=== PATIENT | male | born 1965 | race Caucasian/White ===

== ENCOUNTER 2017-03-30 09:15 | Inpatient (IN) | payer OTHER ==
[~2017-03-30] VITALS: Ht 188 cm; Wt 120.1 kg
[2017-03-30] MEDS ORDERED: DILTIAZEM 5 MG/ML, 5ML ONE (09:52)
[2017-03-30] MEDS ORDERED: SODIUM CHLORIDE FLUSH 10ML SYR IVF ONE (10:00)
[2017-03-30] MEDS ORDERED: DILTIAZEM 5 MG/ML, 5ML IV ONE (10:00)
[2017-03-30] MEDS ORDERED: SODIUM CHLORIDE 0.9% 1,000ML IVBOLUS ONE (10:00)
[2017-03-30 10:13] LABS: HEMATOCRIT 47.2 % (39.2-51.8); HEMOGLOBIN 16.3 g/dL (13.7-18.0); WHITE BLOOD COUNT 10.6 x10^3/uL (3.4-10)
[2017-03-30 10:24] LABS: ASPARTATE AMINO TRANSFERASE 39 U/L (15-37); BLOOD UREA NITROGEN 13 mg/dL (7-18)
[2017-03-30] MEDS ORDERED: PROPOFOL 10 MG/ML, 20ML ONE (10:48)
[2017-03-30] MEDS ORDERED: PROPOFOL 10 MG/ML, 20ML IVPush ONE (11:00)
[2017-03-30] MEDS ORDERED: DILTIAZEM 125 MG in SODIUM CHLORIDE 0.9% 100 ML IV PRN (11:30)
[2017-03-30] MEDS ORDERED: DILTIAZEM 125 MG in SODIUM CHLORIDE 0.9% 100 ML IV SCH (13:00)
[2017-03-30 13:26] LABS: IS PT STATUS REG ER OR PRE ER? YES
[2017-03-30] MEDS ORDERED: LORazepam 1MG TABLET PO PRN (13:30)
[2017-03-30] MEDS ORDERED: ONDANSETRON ODT 4 MG PO PRN (16:30)
[2017-03-30] MEDS ORDERED: ONDANSETRON 2MG/ML, 2ML IVPush PRN (16:30)
[2017-03-30] MEDS ORDERED: ENOXAPARIN 40 MG/0.4 ML SQ SCH (17:00)
[2017-03-30] MEDS ORDERED: MAGNESIUM SULFATE PMX 2GM/50ML 50 ML IV ONE (17:00)
[2017-03-30 17:30] VITALS: BP 132/96
[2017-03-30] MEDS ORDERED: ENAL10TA PO (17:44)
[2017-03-30] MEDS ORDERED: PRAV10TA2 PO (17:45)
[2017-03-30 18:54] VITALS: BP 127/91
[2017-03-30 19:10] LABS: IS PT STATUS REG ER OR PRE ER? NO
[2017-03-30] MEDS: SODIUM CHLORIDE 0.9% 1,000 ML IV SCH ×2 (19:43→19:44)
[2017-03-30] MEDS ORDERED: PRAVASTATIN 20 MG TABLET PO SCH (21:00)
[2017-03-31 00:51] VITALS: BP 117/78
[2017-03-31 05:25] LABS: HEMATOCRIT 43.8 % (39.2-51.8); HEMOGLOBIN 14.8 g/dL (13.7-18.0); WHITE BLOOD COUNT 8.4 x10^3/uL (3.4-10)
[2017-03-31 05:30] LABS: ASPARTATE AMINO TRANSFERASE 23 U/L (15-37); BLOOD UREA NITROGEN 14 mg/dL (7-18)
[2017-03-31] MEDS: SODIUM CHLORIDE 0.9% 1,000 ML IV SCH ×3 (05:33→21:07)
[2017-03-31 07:34] VITALS: BP 117/79
[2017-03-31] MEDS: ENALAPRIL 10 MG TABLET PO SCH (07:45)
[2017-03-31] MEDS ORDERED: ENALAPRIL 10 MG TABLET PO SCH (09:00)
[2017-03-31] MEDS ORDERED: PRAVASTATIN 20 MG TABLET PO SCH (09:00)
[2017-03-31] MEDS ORDERED: ASPIRIN 325 MG TABLET PO SCH (10:00)
[2017-03-31] MEDS: CALCIUM CARBONATE 500 MG TABLET PO SCH ×2 (10:20→21:06)
[2017-03-31 10:48] LABS: IS PT STATUS REG ER OR PRE ER? NO
[2017-03-31] MEDS ORDERED: DILTIAZEM 30 MG TABLET PO SCH (11:00)
[2017-03-31] MEDS ORDERED: DILTIAZEM 125 MG in SODIUM CHLORIDE 0.9% 100 ML IV SCH (13:00)
[2017-03-31] MEDS ORDERED: DILTIAZEM 125 MG in SODIUM CHLORIDE 0.9% 100 ML IV PRN (13:30)
[2017-03-31] MEDS: METOPROLOL TARTRATE 25 MG TABLET PO SCH ×2 (13:59→21:06)
[2017-03-31 14:30] VITALS: BP 117/83
[2017-03-31] MEDS: DILTIAZEM 120 MG CAP.ER.24H PO SCH (15:24)
[2017-03-31 20:00] VITALS: BP 146/94
[2017-03-31] MEDS: APIXABAN 5 MG TABLET PO SCH (21:06)
[2017-04-01 00:28] VITALS: BP 142/92
[2017-04-01] MEDS: METOPROLOL TARTRATE 25 MG TABLET PO SCH ×3 (01:22→14:07)
[2017-04-01] MEDS: SODIUM CHLORIDE 0.9% 1,000 ML IV SCH ×2 (05:09→13:04)
[2017-04-01] MEDS: APIXABAN 5 MG TABLET PO SCH (07:40)
[2017-04-01] MEDS: ENALAPRIL 10 MG TABLET PO SCH (07:40)
[2017-04-01] MEDS: DILTIAZEM 120 MG CAP.ER.24H PO SCH (07:40)
[2017-04-01 08:12] VITALS: BP 133/93
[2017-04-01 14:39] VITALS: BP 127/83
[2017-04-01] MEDS ORDERED: APIX5TAB PO (14:41)
[2017-04-01] MEDS ORDERED: METO25TA35 PO (14:41)
[2017-04-01] MEDS ORDERED: DILT120C9 PO (14:41)
[2017-04-01] MEDS ORDERED: DILTIAZEM 120 MG CAP.ER.24H PO SCH (21:00)
== END 2017-04-01 16:07 | disposition home or self-care (01) | DRG 309 ==
LOC: ED 11:08 → EDIP 11:59 → 5SO 13:51 → DCLOUNGE 04-01 15:25
PROVIDERS: ADMIT Hospitalist; ATTEND Hospitalist
DX: I48.91 Unspecified atrial fibrillation (principal); D68.69 Other thrombophilia; D72.829 Elevated white blood cell count, unspecified; E66.9 Obesity, unspecified; E83.51 Hypocalcemia; I10 Essential (primary) hypertension; Z82.49 Family history of ischemic heart disease and other diseases of the circulatory system; Z87.891 Personal history of nicotine dependence; Z83.3 Family history of diabetes mellitus; Z68.34 Body mass index [BMI] 34.0-34.9, adult
CPT/HCPCS: 36415; 71010; 80053; 82330; 83735; 84100; 84443; 84484; 85025; 85610; 85730; 93005; 93306; 96374; J1650; J3475; J7030

== ENCOUNTER → 2017-05-06 | Outpatient (CLI) | payer OTHER ==
[~2017-05-06] MED LIST: APIX5TAB PO; DILT120C9 PO; ENAL10TA PO; METO25TA35 PO; PRAV10TA2 PO
== END | disposition home or self-care (01) ==
LOC: CFH 12:26
PROVIDERS: ATTEND Internal Medicine Cardiovascular Disease
DX: I48.0 Paroxysmal atrial fibrillation (principal)
CPT/HCPCS: 78452; 93017; A9502

== ENCOUNTER → 2018-03-01 | Outpatient (CLI) | payer OTHER | END | disposition home or self-care (01) | LOC: CFH 14:24 | PROVIDERS: ATTEND Family Medicine | DX: N63.12 Unspecified lump in the right breast, upper inner quadrant (principal); Z80.3 Family history of malignant neoplasm of breast | CPT/HCPCS: 77066 ==